=== PATIENT | female | born 1970 | race Caucasian/White ===

== ENCOUNTER → 2017-01-17 | Outpatient (CLI) | payer BC ==
[~2017-01-17] MED LIST: ESTR1PAT46 TD; HYDROXYSUT PO; LACO100T2 PO; NF-LAM100T PO; PANT40TA3 PO; VERA80TA2 PO; [UNRECOGNIZED DRUG - OTHER] PO
== END ==
LOC: LAB 17:19
PROVIDERS: ATTEND Internal Medicine
DX: M81.0 Age-related osteoporosis without current pathological fracture (principal)
CPT/HCPCS: 36415; 82306